=== PATIENT | male | born 1945 ===

== ENCOUNTER 2018-02-01 22:43 | Emergency (ER) | payer MEDICARE ==
--- NOTE | 2018-02-01 23:22 | Emergency Department Report ---
ED Recheck HPI - General Chief Complaint: Recheck/Abnormal Lab/Rx Stated Complaint: LAB WORK Time Seen by Provider: 02/01/18 23:09 Source: patient, EMS Mode of arrival: Ambulatory Limitations: No Limitations - History of Present Illness Initial Comments: Mr Corrales is a 72 year-old man sent from psych facility to check his INR. Hx of blood clots in his legs, on warfarin. has not been checked recently. Unclear why he came at 10pm on Friday night. Patient denies any complaints. has bilateral LE swelling. He is unsure if this is new. Denies chest pain, shortness of breath, back pain, TAPIA or changes in vision. - Related Data Allergies Allergy/AdvReac Type Severity Reaction Status Date / Time codeine Allergy Unknown Verified 02/01/18 22:53 ED Review of Systems ROS: Stated complaint: LAB WORK Other details as noted in HPI Comment: All other systems reviewed and negative ED Past Medical Hx - Past Medical History Hx Hypertension: Yes Hx Psychiatric Treatment: Yes (schizophrenia) Additional medical history: bld clots - Surgical History Past Surgical History?: No - Social History Smoking Status: Current Every Day Smoker Substance Use Type: None ED Physical Exam - General Limitations: No Limitations General appearance: alert, in no apparent distress - Head Head exam: Present: atraumatic, normocephalic - Eye Eye exam: Present: normal appearance, EOMI. Absent: scleral icterus, conjunctival injection - ENT ENT exam: Present: normal exam, mucous membranes moist - Neck Neck exam: Present: normal inspection. Absent: tenderness, meningismus, full ROM - Respiratory Respiratory exam: Present: normal lung sounds bilaterally. Absent: respiratory distress, wheezes, rales - Cardiovascular Cardiovascular Exam: Present: regular rate, normal rhythm, normal heart sounds. Absent: bradycardia, tachycardia - GI/Abdominal GI/Abdominal exam: Present: soft. Absent: distended, tenderness, guarding, rebound - Extremities Exam Extremities exam: Present: normal inspection, full ROM, other (bilateral LE swelling, non-pitting edema. no calf tenderness. 2+ DP pulses. Negative sarah signs. ). Absent: tenderness - Back Exam Back exam: Absent: tenderness, CVA tenderness (R), CVA tenderness (L) - Neurological Exam Neurological exam: Present: alert, oriented X3 - Psychiatric Psychiatric exam: Present: normal affect, normal mood - Skin Skin exam: Present: warm, dry, intact ED Course Vital Signs 02/01/18 02/02/18 22:53 00:01 Temperature 98.0 F 97.7 F Pulse Rate 18 L 60 Respiratory 16 18 Rate Blood Pressure 188/78 Blood Pressure 190/90 [Left] O2 Sat by Pulse 97 100 Oximetry ED Recheck MDM - Medical Decision Making Mr Corrales is a 72 year-old man who presents for INR check. no complaints. On coumadin for DVTs. Bilateral LE swelling. Low suspicion for DVT. INR 1.84. Slightly below goal. Will dc back to care home with this information. Aid does not know what dose of coumadin he has been taking. I cannot adjust his medications. Will defer this to MD at home who can make this adjustment knowing his normal dose. Given care instructions, return precautions. DC to [facility]. Critical care attestation.: If time is entered above; I have spent that time in minutes in the direct care of this critically ill patient, excluding procedure time. ED Disposition Clinical Impression: Abnormal laboratory test Disposition: DC-01 TO HOME OR SELFCARE Is pt being admited?: No Does the pt Need Aspirin: No Condition: Stable Instructions: Elevated INR (ED) Additional Instructions: Your INR is 1.84. This is slightly below where it should be. Please have your doctor increase you warfarin dose slightly. I was not provided the dose or frequency of your medication. please share this information with your doctor to have the appropriate dose of warfarin.
[2018-02-02 00:30] LABS: INR 1.84 (0.87-1.13)
[2018-02-02 01:57] VITALS: BP 168/89
== END 2018-02-02 02:55 | disposition home or self-care (01) ==
LOC: ED 22:43
DX: R22.43 Localized swelling, mass and lump, lower limb, bilateral (principal); I10 Essential (primary) hypertension; F20.9 Schizophrenia, unspecified; F17.200 Nicotine dependence, unspecified, uncomplicated; Z86.718 Personal history of other venous thrombosis and embolism; Z88.5 Allergy status to narcotic agent; Z79.02 Long term (current) use of antithrombotics/antiplatelets
CPT/HCPCS: 36415; 85610; 99283